=== PATIENT | male | born 1980 | race Caucasian/White ===

== ENCOUNTER 2016-07-01 17:29 | Emergency (ER) | payer MEDICARE, OTHER ==
[2016-07-01] MEDS ORDERED: NORMAL SALINE 1,000 ML in NORMAL SALINE 1,000 ML IV ONE (18:58)
--- OUTSIDE RECORDS SUMMARY | 2016-07-01 19:05 | XMS REPORT | Continuity of Care Document ---
:1980 Author Organization [facility] ([facility]) Address [address] [place] [address] Phone [phone] Care Team Providers Name Role Phone Provider, No-Primary Care Primary Care Provider Unavailable Source Comments This disclosure is being made pursuant to the Care Everywhere program, applicable federal and state laws, and may not contain all informaitonavailable regarding this patient.[facility] ([facility]) Active Allergies and Adverse Reactions No Known Allergies Current Medications Prescription Sig. Disp. Refills Start Date End Date Status clonazePAM 0.5 mg Take 1 tablet 30 tablet 0 02/17/2015 Active tablet (0.5 mg total) by mouth 2 times daily Active Problems Not on file Immunizations Name Dates Previously Given Next Due Tdap 10/20/2015 Social History Tobacco Use Types Packs/Day Years Used Date Never Assessed Last Filed Vital Signs Vital Sign Reading Time Taken Blood Pressure 121/104 10/20/2015 1:27 PM CDT Pulse 68 10/20/2015 1:27 PM CDT Temperature 37.6 C (99.6 F) 10/20/2015 1:27 PM CDT Respiratory Rate 20 10/20/2015 1:27 PM CDT Height - - Weight - - Body Mass Index - - Oxygen Saturation 98% 10/20/2015 1:27 PM CDT Plan of Care Health Maintenance Due Date Last Done Comments Hepatitis B Vaccine (1 of 3 - Primary Series) 1980 Lipid Disorder Screening 1999 MMR Vaccine 1999 Varicella Vaccine (1 of 2 - Adult - No Evidence of 1999 Immunity) Influenza Vaccine: Seasonal (#1) 12/04/2015 Td Vaccine 10/19/2025 10/20/2015 Tdap Vaccine Completed 10/20/2015 Results from Last 3 Months Not on file
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
[2016-07-01] MEDS ORDERED: HYDROcodone/ACETAMINOPHEN 1 EACH TABLET ONE (20:06)
[2016-07-01] MEDS: HYDROcodone/ACETAMINOPHEN 1 EACH TABLET PO ONE ×2 (20:16→20:18)
[2016-07-01 21:05] VITALS: BP 129/79
== END 2016-07-01 20:20 | disposition home or self-care (01) ==
LOC: ER 17:29
DX: S42.114A Nondisplaced fracture of body of scapula, right shoulder, initial encounter for closed fracture (principal); S42.024A Nondisplaced fracture of shaft of right clavicle, initial encounter for closed fracture; Z72.0 Tobacco use; V28.0XXA Motorcycle driver injured in noncollision transport accident in nontraffic accident, initial encounter; Y93.I9 Activity, other involving external motion; Y92.410 Unspecified street and highway as the place of occurrence of the external cause